=== PATIENT | female | born 1950 | race Caucasian/White ===

== ENCOUNTER 2016-08-25 16:31 | Emergency (ER) | payer OTHER ==
[~2016-08-25] VITALS: Ht 165.1 cm; Wt 74.8 kg
--- NOTE | 2016-08-25 16:42 | ED MVC/FALL/TRAUMA COMPLAINT ---
History of Present Illness General Chief Complaint: Fall Stated Complaint: BIBA FALL SHOULDER AND ELBOW PAIN Source: patient Exam Limitations: no limitations Vital Signs & Intake/Output Vital Signs & Intake/Output Vital Signs Date Time Temp Pulse Resp B/P Pulse O2 O2 Flow FiO2 Ox Delivery Rate 08/25 1807 99.2 92 16 143/77 96 Room Air 08/25 1637 105 16 155/74 95 Room Air Allergies Coded Allergies: NO KNOWN ALLERGIES (08/25/16) Reconcile Medications Amlodipine Besylate 10 MG TABLET 1 TAB PO DAILY BP (Reported) Ascorbate Calcium (Vitamin C) 500 MG TABLET 1 TAB PO DAILY SUPPLEMENT ( Reported) Aspirin (Ecotrin*) 81 MG TABLET.DR 1 TAB PO DAILY HEART/BLOOD (Reported) Biotin (Unknown Strength) TABLET (Unknown Dose) PO DAILY SUPPLEMENT (Reported ) Cholecalciferol (Vitamin D3) (Vitamin D) 1,000 UNIT TABLET 1 TAB PO DAILY SUPPLEMENT (Reported) Diazepam (Valium) 10 MG TABLET 1 TAB PO PRN MUSCLE RELAXER/ANXIETY (Reported) Fish Oil/Dha/Epa (Fish Oil 1,200 MG Fish Oil) 1,200 MG-144 MG-216 MG CAPSULE 1 CAP PO DAILY SUPPLEMENT (Reported) Hydrocodone/Acetaminophen (Hydrocodon-Acetaminophn 10-325) 10 MG-325 MG TABLET 1 TAB PO PRN PAIN (Reported) Levothyroxine Sodium 25 MCG TABLET 1 TAB PO EOD THYROID (Reported) Levothyroxine Sodium (Levoxyl) 50 MCG TABLET 1 TAB PO EOD THYROID (Reported) Meloxicam (Mobic) 15 MG TABLET 1 TAB PO DAILY PRN PAIN Metformin HCl 500 MG TABLET 1 TAB PO BID DM (Reported) Multivitamin/Iron/Folic Acid (Centrum Complete Multivit Tab) (Unknown Strength) TABLET 1 TAB PO DAILY SUPPLEMENT (Reported) Pravastatin Sodium 20 MG TABLET 1 TAB PO DAILY CHOLESTEROL (Reported) Ranitidine (Ranitidine HCl) 150 MG TABLET 1 TAB PO BID GI (Reported) Triage Nurses Notes Reviewed? yes Onset: Abrupt Duration: constant Timing: recent history Severity: moderate Severity Numbers: 5 Method of Injury: direct blow, fall Loss of Consciousness: no loss of consciousness HPI: Patient is a 66-year-old female who presents emergency and that yesterday evening she states that she drank 2 vodka cranberries beverages and states that she slipped on her gloria in her residency which she subsequently struck the left lateral aspect of her hip her shoulder and her elbow to the ground however patient was able to get up and eyes any preceding episode of dizziness and lightheaded sensation. Denies any head strike or loss of consciousness. Patient states that leg movements elbow and shoulder movements to the left side make worse. Patient denies any intoxication currently and denies any alcohol use today. Patient was brought in by ambulance for pain Denies any elbow pain back pain neck pain headache knee pain or ankle pain EMS states that patient has been ambulatory on the scene Past History Medical History Any Pertinent Medical History? see below for history Musculoskeletal: chronic back pain Psychiatric: anxiety Surgical History Surgical History: non-contributory Psychosocial History What is your primary language Armenian Family History Hx Contributory? No Review of Systems Review of Systems Constitutional: Reports: no symptoms. Eyes: Reports: no symptoms. Ears, Nose, Throat, Mouth: Reports: no symptoms. Respiratory: Reports: no symptoms. Cardiovascular: Reports: no symptoms. Gastrointestinal/Abdominal: Reports: no symptoms. Genitourinary: Reports: no symptoms. Musculoskeletal: Reports: see HPI, joint pain. Skin: Reports: no symptoms. Neurological/Psychological: Reports: no symptoms. All Other Systems: Reviewed and Negative Physical Exam Physical Exam General Appearance: no apparent distress, alert, comfortable Head: atraumatic Eyes: Bilateral: normal appearance, PERRL, EOMI. Ears, Nose, Throat, Mouth: hearing grossly normal, Tympanic normal Neck: normal inspection, supple, full range of motion, normal alignment, no midline tenderness Respiratory: normal breath sounds, chest non-tender, no respiratory distress Cardiovascular: regular rate/rhythm Peripheral Pulses: 2+ radial (R), 2+ radial (L) Gastrointestinal: normal bowel sounds, soft, non-tender Back: normal inspection, normal range of motion, no vertebral tenderness Extremities: normal range of motion Neurologic/Psych: no motor/sensory deficits, awake Skin: intact, normal color, warm/dry Comments: Left shoulder - normal inspection for elective range of motion noted glenohumeral point tenderness noted pain with active range of motion noted Left elbow- normal inspection for FULL ACTIVE range of motion noted generalized elbow point tenderness noted Left upper extremity dermatomes intact radial pulse +2 Left hip normal inspection for FULL ACTIVE range of motion noted left lateral point tenderness noted patient able to perform straight leg raise Left lower extremity knee and ankle nontender dermatomes intact pedal pulse +2 Core Measures ACS in differential dx? No Severe Sepsis Present: No Septic Shock Present: No Progress Differential Diagnosis: aoritic dissection, abd injury, C/T/L spine injury, ext injury, ICH, pelvis injury, pnemothorax, spinal cord injury Plan of Care: Orders Procedure Date/time Status XRY-SHOULDER COMPLETE-LEFT 08/25 1640 Active XRY-HIP 2-3 VIEWS, LEFT 08/25 1640 Active XRY-ELBOW 3 OR MORE VIEWS, L 08/25 1640 Active Patient currently is in no apparent distress and shows no signs of intoxication no central spinous tenderness noted. Patient was able to WEIGHT transfer from the EMS bed to the hospital bed using her arms without any pain Nexus criteria 0 No osseous injury noted on x-rays. Patient had normal steady gait on discharge. (CRISTINO BARRERA,ANGY) Diagnostic Imaging: Viewed by Me: Radiology Read. Radiology Impression: no acute abnormality, no fracture Comments: PATIENT: ORQUIDEA WILKS PRESENT AGE: 66 PATIENT ACCOUNT NO: [id number] : 48 LOCATION: [facility] ORDERING PHYSICIAN: ANGY BARRERA SERVICE DATE: 08/25/16-1640 EXAM TYPE: RAD - XRY-ELBOW 3 OR MORE VIEWS, L; XRY-HIP 2-3 VIEWS, LEFT; XRY- SHOULDER COMPLETE-LEFT EXAMINATION: XR SHOULDER, LEFT XR ELBOW, LEFT XR HIP, LEFT CLINICAL INFORMATION: Fall. Left hip, elbow and shoulder pain. COMPARISON: Chest x-ray dated 12/03/2008. TECHNIQUE: 3 views of the left shoulder. 4 views of the left elbow. 2 views of the left hip. FINDINGS: Left shoulder: Evaluation limited due to nonstandard positioning. Diffuse osteopenia. No acute fracture or dislocation. Mild degenerative changes in the glenohumeral and acromioclavicular joint noted with joint space narrowing and spurring. No soft tissue calcification seen. Included left ribs unremarkable. Left elbow: Evaluation limited due to nonstandard positioning. Diffuse osteopenia. No definite acute fracture or dislocation. Well-corticated bone fragment seen adjacent to the external epicondyles, consistent with enthesopathic ossifications of the extensor tendons. No soft tissue calcification. Left hip: Diffuse osteopenia. No acute fracture or dislocation. Mild degenerative change with superior joint space narrowing and minimal spurring and cystic change seen. Included left sacroiliac joint and pubic symphysis unremarkable. IMPRESSION: 1. Evaluation of the left shoulder and left elbow limited due to nonstandard positioning. 2. Diffuse osteopenia with no acute fracture of the left shoulder, left elbow, or left hip. 3. Mild degenerative changes in all joints as discussed above. Departure Departure Disposition: HOME OR SELF CARE Condition: Stable Clinical Impression Primary Impression: Left shoulder pain Secondary Impressions: Left elbow pain, Left hip pain Referrals: ELLIE BUCKNER,[place]IR[place]IA ALCANTARA (PCP/Family) Additional Instructions: As discussed BEGIN TO ice in the area directly 20 minutes every 2 hours Continue all medications as directed, BEGIN the prescription of MELOXICAM for pain and inflammation. Please try to limit your alcohol beverage intake to avoid falling. If no better in one week follow-up with orthopedic DR. ARGUETA If symptoms worsen return to the emergency room Departure Forms: Customer Survey General Discharge Information Prescriptions: Current Visit Scripts Meloxicam (Mobic) 1 TAB PO DAILY PRN PAIN #14 TAB
[2016-08-25] MEDS ORDERED: AMLODIPINE BESY10 M1 PO (17:22)
[2016-08-25] MEDS ORDERED: PRAVASTATIN SOD20 M2 PO (17:22)
[2016-08-25] MEDS ORDERED: METFORMIN HCL500 M3 PO (17:22)
[2016-08-25] MEDS ORDERED: LEVOTHYROXINE25 MCG PO (17:23)
[2016-08-25] MEDS ORDERED: LEVOXYL50 MCG PO (17:24)
[2016-08-25] MEDS ORDERED: ASPIRIN EC81 M1 PO (17:25)
[2016-08-25] MEDS ORDERED: HYDROCODON-ACE1 EAC1 PO (17:32)
[2016-08-25] MEDS ORDERED: RANITIDINE HCL150 MG PO (17:33)
[2016-08-25] MEDS ORDERED: VALIUM10 M1 PO (17:33)
[2016-08-25] MEDS ORDERED: BIOTIN300 MC1 PO (17:34)
[2016-08-25] MEDS ORDERED: VITAMIN C500 M6 PO (17:34)
[2016-08-25] MEDS ORDERED: VITAMIN D1000 UNIT PO (17:34)
[2016-08-25] MEDS ORDERED: CENTRUM COMPLE1 EACH PO (17:35)
[2016-08-25] MEDS ORDERED: FISH OIL 1,2001 EACH PO (17:35)
--- NOTE | 2016-08-25 17:41 | RADIOLOGY REPORT ---
EXAMINATION: XR SHOULDER, LEFT XR ELBOW, LEFT XR HIP, LEFT CLINICAL INFORMATION: Fall. Left hip, elbow and shoulder pain. COMPARISON: Chest x-ray dated 12/03/2008. TECHNIQUE: 3 views of the left shoulder. 4 views of the left elbow. 2 views of the left hip. FINDINGS: Left shoulder: Evaluation limited due to nonstandard positioning. Diffuse osteopenia. No acute fracture or dislocation. Mild degenerative changes in the glenohumeral and acromioclavicular joint noted with joint space narrowing and spurring. No soft tissue calcification seen. Included left ribs unremarkable. Left elbow: Evaluation limited due to nonstandard positioning. Diffuse osteopenia. No definite acute fracture or dislocation. Well-corticated bone fragment seen adjacent to the external epicondyles, consistent with enthesopathic ossifications of the extensor tendons. No soft tissue calcification. Left hip: Diffuse osteopenia. No acute fracture or dislocation. Mild degenerative change with superior joint space narrowing and minimal spurring and cystic change seen. Included left sacroiliac joint and pubic symphysis unremarkable. IMPRESSION: 1. Evaluation of the left shoulder and left elbow limited due to nonstandard positioning. 2. Diffuse osteopenia with no acute fracture of the left shoulder, left elbow, or left hip. 3. Mild degenerative changes in all joints as discussed above.
[2016-08-25 18:07] VITALS: BP 143/77
[2016-08-25] MEDS ORDERED: MOBIC15 M1 PO (18:07)
== END 2016-08-25 18:12 ==
LOC: ERH 16:31
DX: M25.512 Pain in left shoulder (principal); M25.522 Pain in left elbow; M25.552 Pain in left hip
CPT/HCPCS: 73030-LT; 73080-LT; 73502-LT